=== PATIENT | male | born 1960 | race Hispanic/Latino ===

== ENCOUNTER 2016-07-04 02:53 | Emergency (ER) | payer OTHER ==
[~2016-07-04 02:53] MED LIST: AMBIEN10 M1 PO; EFF375 PO; OXYC-169 PO
[2016-07-04 02:56] VITALS: BP 118/75; PULSE 66; RESP 16; O2SAT 97
[2016-07-04 04:30] LABS: BASOPHILS % (AUTO) 0.4 % (0-3); EOSINOPHILS % (AUTO) 1.5 % (0-5); MONOCYTES % (AUTO) 8.9 % (4-12); Mean Corpuscular Hemoglobin 29.7 pg (27.0-35.0); Mean Corpuscular Volume 85.7 fL (81-100); NEUTROPHILS % (AUTO) 58.3 % (40-74); Platelet Count 248 bil/L (150-400)
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
[2016-07-04 04:46] LABS: INR 0.95 ratio
[2016-07-04] MEDS ORDERED: IBUP-1827 PO (05:04)
[2016-07-04 05:19] VITALS: BP_SYST 118; BP_SYST 120; BP_DIAS 68; BP_DIAS 75; PULSE 61; PULSE 66; RESP 16; O2SAT 96; O2SAT 97
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
== END 2016-07-04 05:05 | disposition home or self-care (01) ==
LOC: SED 02:53
DX: S09.8XXA Other specified injuries of head, initial encounter (principal); S00.81XA Abrasion of other part of head, initial encounter; M54.2 Cervicalgia; V18.0XXA Pedal cycle driver injured in noncollision transport accident in nontraffic accident, initial encounter; Y93.55 Activity, bike riding; Y99.8 Other external cause status; Y92.410 Unspecified street and highway as the place of occurrence of the external cause; F17.200 Nicotine dependence, unspecified, uncomplicated; E11.9 Type 2 diabetes mellitus without complications; F41.9 Anxiety disorder, unspecified; Z88.5 Allergy status to narcotic agent
CPT/HCPCS: 36415; 70450; 71010; 72125; 80053; 85025; 85610; 85730; 93005; 99285; G0480